=== PATIENT | female | born 1970 | race Caucasian/White ===

== ENCOUNTER 2022-06-27 08:52 | Outpatient (CLI) | payer OTHER, SELFPAY ==
--- NOTE | 2022-06-27 09:08 | MM_ITS ---
WS: [id number] VIEWS: MLO and CC views both breasts. 3D digital tomosynthesis is also included in this exam. Comparison made with prior exam of 12/26/2011, 07/22/2016,. Findings: There was no sign of mass, architectural distortion or suspicious calcification in either breast. Sc attered fibroglandular densities MM/[place] [id number] Impression: BI-RADS: 2-Benign FOLLOW-UP: 1 Year Follow-up This mammogram was also analyzed by the Computer Aided Detection System R2 Imag e Referral Manager.
== END 2022-06-27 08:53 | disposition home or self-care (01) ==
LOC: RAD 08:58
PROVIDERS: Visit Provider Electrodiagnostic Medicine
DX: Z12.31 Encounter for screening mammogram for malignant neoplasm of breast (principal)
CPT/HCPCS: 77063; 77067

== ENCOUNTER 2022-08-06 07:18 | Emergency (ER) | payer OTHER, SELFPAY ==
[2022-08-06 07:23] VITALS: BP 109/60; PULSE 94; RESP 18; TEMP 36.4; O2SAT 96
[2022-08-06 07:26] VITALS: BP 112/64; PULSE 80; RESP 18; TEMP 36.4; O2SAT 96
--- NOTE | 2022-08-06 07:29 | XR_ITS ---
WS: [id number] Right hand, 3 views, 08/06/2022 Clinical Data: fall Comparison: None. Findings: There is a comminuted fracture of the base of the right fifth finger proximal phalanx. Ther e is ulnar deviation of the distal right fifth finger.The remainder of the hand is unremarkable. XR/XR hand RT min 3V* 41513 Impression: Comminuted fracture of the base of the right fifth finger proximal phalanx.
--- NOTE | 2022-08-06 07:35 | W.ED.EXTPRO ---
HPI - Extremity Problem General: Chief complaint: Extremity Injury, Upper Stated complaint: fall, Possible dislocation of r index finger Time Seen by Provider: 08/06/22 07:28 History of Present Illness: Patient is a 52-year-old female comes to the ED with a right hand injury. Injury occurred just prior to arrival. Patient says she was walking When she was falling down she tried to grab a hold of something which caused the injury to her finger. Denies any head trauma or loss of consciousness. She took some ibuprofen from her purse as she arrived here in the ED. Associated symptoms: Deny chest pain, fever(s) or rash Review of Systems Const: Denies: fever(s), chills or fatigue Eyes: Denies: change in vision or eye discomfort ENMT: Denies: throat pain, odynophagia, nasal discharge or nasal congestion Card: Denies: chest pain, palpitations, edema, swelling of feet/ankles, dyspnea on exertion or orthopnea Resp: Denies: dyspnea, productive cough or non-productive cough GI: Denies: abdominal pain, nausea, vomiting, diarrhea, constipation or hematochezia : Denies: flank pain, dysuria or hematuria Musc: Reports: extremity pain (right hand 5th digit); Denies: neck pain, back pain or extremity swelling Skin/Breast: Denies: rash or new lesions Neuro: Denies: headache(s), numbness in extremities or weakness in extremities [facility] ED PFSH: Medical History No pertinent family history Surgical History No pertinent past surgical history Physical Exam Const: COMMON NORMALS: no acute distress, patient oriented x3, healthy appearing and alert GENERAL APPEARANCE: cooperative and comfortable HENMT: COMMON NORMALS: normocephalic HEAD & SCALP: normocephalic MOUTH: Normal oral and palatal mucosa present THROAT: posterior oropharynx normal and uvula midline Neck/C-Spine: COMMON NORMALS: supple GENERAL: Yes normal visual inspection Resp: COMMON NORMALS: normal respiratory effort, No retractions, No use of accessory muscles and clear to auscultation bilaterally AUSCULTATION: clear to auscultation bilaterally Cardio: COMMON NORMALS: regular rate, regular rhythm, S1 normal heart sound present, S2 normal heart sound present, No gallops present (Cardio), No clicks present (Cardio), No murmurs present (Cardio) and Peripheral pulses 2+ throughout RATE: regular rate RHYTHM: regular rhythm HEART SOUNDS: S1 normal heart sound present and S2 normal heart sound present PERIPHERAL PULSES: Peripheral pulses 2+ throughout GI: COMMON NORMALS: Normal to inspection, nondistended, normoactive bowel sounds present, Soft to palpation, non-tender and no masses PALPATION: Yes Soft to palpation : COMMON NORMALS: Yes no CVA tenderness BLADDER/KIDNEY EXAM: Yes no CVA tenderness Back/Pelvis: COMMON NORMALS: no CVA tenderness Extremity: NARRATIVE EXTREMITY EXAM: Right hand?fifth digit--lateral deformity at the base of finger. neurovascular intact. GENERAL: Yes normal exam except as noted and Yes deformity (Right hand-fifth digit) Neuro: COMMON NORMALS: patient oriented x3 SENSORIUM/ORIENTATION: Yes alert GAIT: Yes Normal gait present Skin: GENERAL SKIN EXAM: dry skin Procedures Orthopedic Fracture Reduction Fracture #1: Time Out Performed: Yes Side: right Fracture Reduction Location: finger (proximal phalanx) Analgesia: hematoma block (Lidocaine 2%-2.5 mL) Technique: direct manipulation Post Reduction X-rays Demonstrate: acceptable reduction Post-reduction neuro exam: intact Post-reduction vascular exam: intact Splint Applied: Yes Patient Tolerated Procedure: well Course Vital Signs: Vital signs: Vital Signs Temperature 97.6 F 08/06/22 09:15 Pulse Rate 80 08/06/22 09:15 Respiratory Rate 18 08/06/22 09:15 Blood Pressure 112/64 08/06/22 09:15 Pulse Oximetry 96 08/06/22 09:15 Oxygen Delivery Pa thod 08/06/22 07:26 MDM - Extremity (Nontraumatic) Medical Decision Making Patient is a 52-year-old female comes to the ED with injury to her fifth digit right hand. Patient was walking down a hill and fell and while she was falling she injured her right pinky. Denies any head injury or loss of consciousness. Visible deformity at the base of the finger upon exam. She also has multiple abrasions on fingers right hand. neurovascular intact. Vitals are stable. X-ray showed a displaced fracture of the base of right fifth finger proximal phalanx. Hematoma block was performed. Direct manipulation used to reduce fracture. Post reduction x-rays were performed and it showed an acceptable reduction. Finger was charles taped and then patient was put in a ulnar gutter splint. Patient was given updated tetanus. I put in an order with case management for patient be referred to Ortho for follow-up. Informed patient that the orthopedic will discuss with her at appointment whether she will need surgery or not. Patient did not want any narcotic pain meds and says she will take [id number] ibuprofen or Tylenol for pain. Return to ED precautions given. Patient understood and agreed with plan. Lab Data Radiology Impressions Hand X-Ray 08/06/22 07:58 Impression: Partial reduction and improvement of the ulnar and dorsal deviation of the right fifth finger. Discharge Plan Discharge Patient Disposition: Home Clinical Impression: Finger fracture, right Qualifiers: Encounter type: initial encounter Finger: little finger Fracture type: closed Phalanx: proximal Fracture alignment: displaced Qualified Code(s): S62.616A - Displaced fracture of proximal phalanx of right little finger, initial encounter for closed fracture Abrasion of finger of right hand Qualifiers: Encounter type: initial encounter Qualified Code(s): S60.419A - Abrasion of unspecified finger, initial encounter Condition: Stable Prescriptions: New cephalexin 500 mg capsule 500 mg PO Q6H 7 Days Qty: 28 0RF Discharge Orders: Discharge ED (Routine); Ordered 08/06/22 Ordered By: Abisai Tran Discharge Diet: Regular Discharge Activity: Limit activity as instructed Activity Restrictions/Additional Instructions: Follow-up with medical provider as directed. Case management should be contacted in the next several days set up an appoint with orthopedic doctor for follow-up and further management of finger fracture. Take medications as prescribed. Take [id number] Tylenol or ibuprofen for pain. Keep splint on and dry and limit any activity with right hand until cleared by orthopedic doctor. Return to the ER or your medical provider if condition worsens. Please read and understand discharge instructions. Thank you for choosing [facility] for your healthcare needs today. Please realize this is an emergency room and that we are providing you with a medical screening exam and this may not be complete and all inclusive of all the testing and or work up that you may need to determine your ailment or severity of your illness. It is very important that you follow up as instructed or that you return to the Emergency Department should you have concerns or if your condition changes or worsens in any way. Patient received Iehoaqa-Hqkth-Vphziisgd 0.5ml injection IM this ER visit. Lot: [id number] EXP 10/15/23 Coding Level of Care Code ED Flash Developer for Shamir Fwd Exam Comprehensive
[2022-08-06] MEDS: lidocaine 2% INJ 20 mL INJECTION (07:52)
--- NOTE | 2022-08-06 07:58 | XR_ITS ---
WS: [id number] Right hand, 3 views, 08/06/2022, 0806 hours Clinical Data: post reduction xray Comparison: Right hand, 08/06/2022, 0734 hours Findings: The deviation of the right fifth finger has been spine partly reduced.The fracture of the b ase of the right fifth finger proximal phalanx is noted. XR/XR hand RT min 3V* [id number] Impression: Partial reduction and improvement of the ulnar and dorsal deviation of the righ t fifth finger.
[2022-08-06] MEDS: tetanus-dipt-pertussis 0.5 mL SDV IM (08:44)
[2022-08-06 08:53] VITALS: PULSE 80
[2022-08-06 09:15] VITALS: BP 112/64; PULSE 80; RESP 18; TEMP 36.4; O2SAT 96
--- NOTE | 2022-08-07 12:09 | DCPLANNER ---
Addendum entered by Criss Suazo 08/14/22 14:38: Patient had a follow up appointment scheduled with ortho - patient did attend appointment. Addendum entered by Criss Suazo 08/08/22 09:22: Patient has a follow up appointment scheduled for Thursday, August 11, 2022 at 8:[address] Hoskins at ortho. Clinic will call patient with appointment information. Original Note: clinical outcomes manager had message to schedule a follow up appointment for patient with ortho. clinical outcomes manager sent patients information to the front office staff at ortho. Patients information will be printed and reviewed. Clinic will call patient with appointment information.
== END 2022-08-06 08:40 | disposition home or self-care (01) ==
PROVIDERS: Emergency Provider Physician Assistant
DX: S62.616A Displaced fracture of proximal phalanx of right little finger, initial encounter for closed fracture (principal); S60.419A Abrasion of unspecified finger, initial encounter; W18.30XA Fall on same level, unspecified, initial encounter; Z23 Encounter for immunization
CPT/HCPCS: 26725; 29125; 73130; 90471; 90715; 99283

== ENCOUNTER → 2022-08-11 08:36 | Outpatient (BNVA) | payer OTHER, SELFPAY | PROVIDERS: Visit Provider Specialist | DX: S62.616A Displaced fracture of proximal phalanx of right little finger, initial encounter for closed fracture (principal); S60.419A Abrasion of unspecified finger, initial encounter; W19.XXXA Unspecified fall, initial encounter | CPT/HCPCS: 73130 ==

== ENCOUNTER 2022-08-13 05:59 | Day surgery (SDC) | payer OTHER, SELFPAY ==
[2022-08-12 08:43] VITALS: BMI 20.5
[2022-08-13] VITALS (9 sets, daily range): BP systolic 113–132; BP diastolic 61–79; PULSE 58–70; RESP 12–18; TEMP 36.4–37; O2SAT 96–100
--- NOTE | 2022-08-13 | SCC_ITS ---
Procedure done: Right small finger proximal phalanx closed reduction and percutaneous pinning 148 seconds of fluoroscopic guidance, for a cumulative dose of 2.6 mGy, was provided to Dr. Tran by the radiology department. C-arm images of the RIGHT hand were saved for the patient's permanent record. [facility]
--- NOTE | 2022-08-13 06:44 | P.ANESASSM_ITS ---
Pre-Anesthetic Assessment Height/Weight: Height 1.65 m Weight 55.792 kg Temp Pulse Resp BP Pulse Ox O2 Del Method 98.6 F 69 18 113/67 99 08/13/22 06:16 08/13/22 06:16 08/13/22 06:16 08/13/22 06:16 08/13/22 06:16 08/13/22 06:16 Preop Diagnosis: Right small finger proximal phalanx fracture Operation Date: 08/13/22 07:00 Proposed Procedures p CLOSED REDUCTION PERCUTANEOUS PINNING SMALL FINGER PROXIMAL PHALANX 00181, WITH POSSIBLE OPEN REDUCTION 17185, AND RING AND SMALL FINGER INCISION AND DRAINAGE 97201,T14.8XXA,S60.419A,S62.616A(Not Applicable) - DO lindsey Villanueva Incision & Drainage Upper Extremity(Not Applicable) - Raghav Tran DO Familial anesthetic complications: None Was Beta Vlad taken within 24 hours: N/A Was Clonidine taken within 24 hours: N/A Last intake: Intake Last Liquid Date 08/12/22 Last Liquid Time 17:30 Last Solid Date 08/12/22 Last Solid Time 17:30 Social No alcohol and No tobacco Exam alert, oriented x 3, clear to auscultation bilaterally and regular rate & rhythm Airway Submandibular: within normal limits Cervical ROM: within normal limits Mallampati: Class I Dentition: full History/ROS No significant complaints Pulmonary None reported CV/HEM None reported None reported Hepatic None reported GI None reported Metabolic None reported Musc/skel None reported Neuropsych None reported Anesthetic Plan ASA status: 1 Anesthesia: Anesthesia Evaluation, General and MAC Other: We discussed risk and benefits of general anesthesia including PONV, sore throat (sometimes severe), corneal abrasion, positioning and peripheral nerve injuries, life threatening allergic reaction, post operative ICU admission requiring prolonged intubation, aspiration, stroke, heart attack, , and rare incidences of recall. I discussed with the patient risks, goals, and benefits of MAC and general anesthesia. We discussed spectrum of MAC anesthesia including conversion to gene ral as well as possibility of recall of intraoperative stimuli including discomfort/pain. Patient consents to MAC or General pending further discussion with surgeon. Risk of > 500 ml blood loss (7ml/kg in children): No Medications/Allergies Home Medications Medication Instructions Recorded Confirmed Last Taken Type acetaminophen 500 mg tablet 500 mg PO Q6H 7 days #28 tabs 08/13/22 Unknown Rx (Tylenol Extra Strength) cephalexin 500 mg capsule 500 mg PO TID 08/13/22 08/13/22 08/12/22 History ibuprofen 800 mg tablet 800 mg PO Q6H 7 days #28 tabs 08/13/22 Unknown Rx Allergies Allergy/AdvReac Type Severity Reaction Status Date / Time codeine Allergy Severe ADR-Vomitin Verified 08/12/22 08:41 g PFSH Anesthesia Medical History Fracture of proximal phalanx of right hand No pertinent family history Surgical History No pertinent past surgical history Social History Smoking and tobacco status: never smoked Data Anesthesia Cardiac Studies: No Data to Display
[2022-08-13] MEDS: sodium chloride 0.9% 1,000 ML 30 ML IV (06:53)
[2022-08-13] MEDS: diphenhydrAMINE 50 mg/mL SDV 1mL 12.5 MG IVP (06:54)
[2022-08-13] MEDS: scopolamine 1.5 Patch 1 PATCH TRANSDERMA (06:54)
--- NOTE | 2022-08-13 06:58 | W.PM.OPSUD ---
Surgery/Procedure H&P Update DATE OF PROCEDURE: August 13, 2022 DATE H&P PERFORMED: 08/11/22 CHANGES TO PREVIOUS DOCUMENTATION: None PREOP DIAGNOSIS: Right small finger proximal phalanx fracture PRIMARY INDICATION FOR PROCEDURE: Displaced and angulated right small finger proximal phalanx fracture PLANNED PROCEDURE: Operation Date: 08/13/22 07:00 Proposed Procedures p CLOSED REDUCTION PERCUTANEOUS PINNING SMALL FINGER PROXIMAL PHALANX 04730, WITH POSSIBLE OPEN REDUCTION 46534, AND RING AND SMALL FINGER INCISION AND DRAINAGE 44319,T14.8XXA,S60.419A,S62.616A(Not Applicable) - DO lindsey Villanueva Incision & Drainage Upper Extremity(Not Applicable) - Raghav Tran DO
[2022-08-13] MEDS: ceFAZolin 2,000 MG in sodium chloride 0.9% (plus) 50 ML 100 MG IV (07:00)
--- NOTE | 2022-08-13 08:17 | P.OP_ITS ---
Brief Operative Note Date of procedure: 08/13/22 Pre-op diagnosis: Right small finger proximal phalanx fracture Post-op diagnosis: same Procedure Done: Closed reduction and percutaneous pinning right small finger proximal phalanx Surgeon: Raghav Tran Estimated blood loss (mL): 1 Complications: None Post-op Plan: Patient to recover in PACU. We will follow-up in the office in 2 weeks. Given appropriate discharge instructions and pain medication. Keep splint clean dry and intact. We will get patient seen by OT hand therapy to begin range of motion. Condition: stable Disposition: same day Coding Level of Care Code Acute Lens Fabricating Machine Tender for Shamir Piper
--- NOTE | 2022-08-13 08:19 | PM.PACU ---
PACU note Narrative: Patient seen and evaluated in PACU. Patient recovering well. Splint on in place clean dry and intact. Fingers are warm and well-perfused. Patient is able to subtly wiggle fingers however limited secondary to splint. Patient endorses sensation intact light touch to the tips of the fingers. Exam: awake (See narrative for examination) Disposition: discharged
--- NOTE | 2022-08-13 14:06 | ANE.PACU2 ---
Inpatient post-anesthesia follow up: Airway intact: Yes Vital signs: Temperature 97.5 F Pulse Rate 64 Respiratory Rate 18 Blood Pressure 128/79 Pulse Oximetry 100 Oxygen Delivery Me thod Room Air Oxygen Flow Rate Fraction of Inspir ed Oxygen Hydration adequate: Yes Nausea and vomiting: No Pain level: 1 Mental status: Baseline
--- NOTE | 2022-08-14 05:58 | P.OP_ITS ---
Operative Report Date of procedure: August 14, 2022 Pre-op diagnosis: Preop Diagnosis Right small finger proximal phalanx fracture Post-op diagnosis: Same Post-op findings: See procedure note Procedure done: Right small finger proximal phalanx closed reduction and percutaneous pinning Implants: 2x 0.45 K wires Surgeon: Raghav Tran DO Estimated blood loss: 1 cc No tourniquet IV fluids: See anesthesia record Complications: None Findings: See operative note Condition: stable Disposition: same day Brief History: Milly is a 52-year-old female who got her shoe caught on concrete and caused her to fall and hit her right small finger. She sustained a right small finger proximal phalanx fracture with significant angulation and displacement. She was seen evaluated emergency department attempted closed reduction was performed. She sent follow-up in office and on repeat imaging demonstrates residual angulation and deformity on clinical examination. We had detailed discussion about continued nonoperative management versus OR for closed reduction and percutaneous pinning. This point time through shared decision making and given the significant that angulation and deformity recommended closed reduction and percutaneous pinning right small finger proximal phalanx fracture detailed out the risk benefits complications alternatives to surgical and nonsurgical treatment options. Risks include but are not limited to make it better, make it worse, malunion, nonunion, pin site infection, decreased range of motion to the small finger, and decreased function of the hand, injury to arteries nerves or vessels. Patient understands these risks and ultimately elects to proceed with surgical intervention of close reduction percutaneous pinning of the right small finger proximal phalanx. We obtain consent in office and patient presents today in the preoperative holding area for surgery. Procedure: Patient seen evaluated in the preoperative holding area. Consent was reviewed with patient. Extremity was signed. Patient was seen evaluated by the anesthesia department. Patient was then taken to the OR and placed on the operative table was appropriately padded and secured with an armboard to the right upper extremity. She then subsequently underwent anesthesia per the anesthesia department when appropriately anesthetized, we then performed a final timeout. I then injected 10 cc of local to the right small finger for anesthetic under sterile aseptic technique. Patient received appropriate preoperative antibiotics. Patient's right upper extremity was then prepped and draped in standard orthopedic fashion. Mini C arm was brought in to evaluate the fracture pattern. Patient had significant angulation and deformity of the right small finger proximal phalanx, that was seen and interpreted on multiple orthogonal views. This point a closed reduction maneuver was made to reduce the right small finger proximal phalanx fracture. At this point evaluated the base of the proximal phalanx and felt as though this would be amendable to cross pin fixation. As result we started on the collateral recesses first beginning on the radial side of the base of the proximal phalanx. Multiple orthogonal images obtained appropriate starting point not violating the joint and this was then advanced across the fracture and access and excellent purchase into the shaft. This was then driven all the way through the skin and slowly pulled out to where the K wire was resting in the base the proximal phalanx holding her fracture site. Next on the ulnar aspect the proximal phalanx once again placed in the collateral recess this was advanced from a proximal to distal fashion to create a cross pin fixation across the fracture site. This was then subsequently advanced and had excellent purchase on the radial aspect of the distal cortex. At this point finger was checked in multiple orthogonal images fracture site was maintained as well as the reduction. Patient's finger was taken through range of motion and found to be stable. I then decided to leave the pins skin for ease of use to remove in office. While bending these the distal K wire pin did become loose to the through the bending and cutting. As result I took one of the cut small K wires advance this in parallel fashion to the same pin in order to augment my fixation and this was left and not bent. The other K wire that was a little loose was left in his this did still obtain some fixation and augmented holding her reduction. Finger was then again taken through range of motion and found to be stable with acceptable reduction of the right small finger proximal phalanx fracture of the finger was inspected and had appropriate finger cascade with no significant malrotation. All K wires were cut and then covered with Alan balls pin sites were then cleaned and wrapped in Xeroform finger's were well- padded with Curlex 4 x 4's and then an ulnar gutter splint was then placed. Patient tolerated procedure without complications. She was awakened from anesthesia and taken to PACU in stable condition. Disposition: Patient taken to PACU in stable condition. Patient to recovery and discharge home. Given appropriate discharge instructions as well as pain medication. We will get patient set up with OT hand therapy for evaluation next week for dressing takedown and to begin gentle range of motion. Patient should continue nonweightbearing to the right hand. Patient will see me in office in 2 weeks.
== END 2022-08-13 09:12 | disposition home or self-care (01) ==
PROVIDERS: PCP Electrodiagnostic Medicine; Visit Provider Student in an Organized Health Care Education/Training Program
PROC: (CPT 26727; principal; 2022-08-13 07:00)
PROC: (CPT 26727; 2022-08-13 07:00)
DX: S62.616A Displaced fracture of proximal phalanx of right little finger, initial encounter for closed fracture (principal); W19.XXXA Unspecified fall, initial encounter
CPT/HCPCS: 26727; 76000; C1713; J1200; J2250; J2405; J2704; J2795; J3010; J7030

== ENCOUNTER → 2022-08-19 14:19 | Outpatient (BNVA) | payer OTHER, SELFPAY | PROVIDERS: PCP Electrodiagnostic Medicine; Visit Provider Student in an Organized Health Care Education/Training Program | DX: S62.616A Displaced fracture of proximal phalanx of right little finger, initial encounter for closed fracture (principal); X58.XXXA Exposure to other specified factors, initial encounter | CPT/HCPCS: 73130 ==

== ENCOUNTER → 2022-09-02 11:03 | Outpatient (BNVA) | payer OTHER, SELFPAY | PROVIDERS: PCP Electrodiagnostic Medicine; Visit Provider Student in an Organized Health Care Education/Training Program | DX: S62.616A Displaced fracture of proximal phalanx of right little finger, initial encounter for closed fracture (principal); X58.XXXA Exposure to other specified factors, initial encounter | CPT/HCPCS: 73130 ==

== ENCOUNTER → 2022-09-11 14:31 | Outpatient (BNVA) | payer OTHER, SELFPAY | PROVIDERS: PCP Electrodiagnostic Medicine; Visit Provider Student in an Organized Health Care Education/Training Program | DX: X58.XXXA Exposure to other specified factors, initial encounter (principal); S62.619A Displaced fracture of proximal phalanx of unspecified finger, initial encounter for closed fracture | CPT/HCPCS: 73130 ==

== ENCOUNTER 2022-09-18 06:00 | Outpatient (RCR) | payer OTHER, SELFPAY | END 2022-09-29 23:59 | disposition home or self-care (01) | LOC: SOT 06:00 | PROVIDERS: PCP Electrodiagnostic Medicine; Visit Provider Student in an Organized Health Care Education/Training Program | DX: S62.616S Displaced fracture of proximal phalanx of right little finger, sequela (principal); X58.XXXS Exposure to other specified factors, sequela | CPT/HCPCS: 97018; 97110; 97166 ==

== ENCOUNTER 2022-09-30 06:00 | Outpatient (RCR) | payer OTHER, SELFPAY | END 2022-10-07 23:59 | disposition home or self-care (01) | LOC: SOT 06:00 | PROVIDERS: PCP Electrodiagnostic Medicine; Visit Provider Student in an Organized Health Care Education/Training Program | DX: S60.12 Contusion of index finger with damage to nail (principal); X58.XXXS Exposure to other specified factors, sequela | CPT/HCPCS: 97018; 97110; 97140; L3927 ==